=== PATIENT | male | born 1965 | race Caucasian/White ===

== ENCOUNTER 2018-08-21 07:18 | Day surgery (SDC) | payer OTHER ==
[~2018-08-21] VITALS: Ht 170.2 cm; Wt 102.0 kg
[2018-08-21 07:36] VITALS: BP 116/69
[2018-08-21 16:13] VITALS: BP 143/88
== END 2018-08-21 14:50 | disposition home or self-care (01) ==
LOC: DS 07:18 → OR 09:00 → DS 14:50
PROVIDERS: Neuromusculoskeletal Medicine, Sports Medicine
PROC: 0PBF0ZZ Excision of Right Humeral Shaft, Open Approach (ICD-10-PCS; principal; 2018-08-21 09:00)
DX: M77.11 Lateral epicondylitis, right elbow (principal); E66.9 Obesity, unspecified; Z68.35 Body mass index [BMI] 35.0-35.9, adult
CPT/HCPCS: J0690; J1170; J2175; J2250; J2405; J2704; J3010; J3490; J7120